=== PATIENT | female | born 1945 | race Caucasian/White ===

== ENCOUNTER → 2020-10-18 | Outpatient (CLI) | payer MEDICARE | LOC: EMI 10-11 14:30 → EDBD 12:59 → EMI 12:59 | DX: M51.16 Intervertebral disc disorders with radiculopathy, lumbar region (principal); M50.30 Other cervical disc degeneration, unspecified cervical region | CPT/HCPCS: 72141; 72148 ==

== ENCOUNTER → 2021-10-07 | Outpatient (CLI) | payer MEDICARE | LOC: HEART CORB 09:30 | DX: I20.8 Other forms of angina pectoris (principal); R10.13 Epigastric pain; R06.02 Shortness of breath | CPT/HCPCS: 78452; A9502; J2785 ==